=== PATIENT | female | born 1995 | race Hispanic/Latino ===

== ENCOUNTER 2018-08-05 14:53 | Emergency (ER) | payer OTHER ==
[2018-08-05 14:59] VITALS: RESP 18; TEMP 97; O2SAT 100; BMI 28.1
--- NOTE | 2018-08-05 15:32 | ED PDOC ---
Arrival/HPI - General Chief Complaint: Finger,Hand,&Wrist Time Seen by Provider: 08/05/18 15:08 Historian: Patient - History of Present Illness Narrative History of Present Illness (Text): 08/05/18 15:28 22 year old female, who works an an EMT, with no significant past medical history and no significant past surgical history, presents to the ED for evaluation of right 3rd finger injury prior to arrival. Patient states she was throwing bags into her car when her finger got caught into one of the bags, sustaining injury to the site. Patient additionally reports burn to the finger sustained 1 week ago. Patient informs appropriate movement of finger. Patient denies any other associated somatic complaints. Patient denies any fevers, chills, headache, dizziness, chest pain, shortness of breath, dyspnea on exertion, cough, abdominal pain, nausea, vomiting, diarrhea, back pain, neck pain, or any other complaints. Patient denies taking any pain medication at home. Time/Duration: Prior to Arrival Symptom Onset: Gradual Symptom Course: Unchanged Activities at Onset: Light Context: Home Past Medical History - Provider Review Nursing Documentation Reviewed: Yes - Reproductive Currently : No - Psychiatric Hx Substance Use: No - Anesthesia Hx Anesthesia: No Family/Social History - Physician Review Nursing Documentation Reviewed: Yes Family/Social History: No Known Family HX Smoking Status: Current Some Days Smoker Hx Alcohol Use: Yes Frequency of alcohol use: Socially Hx Substance Use: No Allergies/Home Meds Allergies/Adverse Reactions: Allergies No Known Allergies Allergy (Verified 08/05/18 15:03) Home Medications: Home Meds Medication Instructions Recorded Confirmed RX: No Known Home Med 08/05/18 08/05/18 Review of Systems - Physician Review All systems were reviewed & negative as marked: Yes - Review of Systems Constitutional: absent: Fevers Respiratory: absent: SOB, Cough Cardiovascular: absent: Chest Pain Gastrointestinal: absent: Abdominal Pain, Diarrhea, Nausea, Vomiting Genitourinary Female: absent: Dysuria, Urine Output Changes Musculoskeletal: absent: Back Pain, Neck Pain Skin: absent: Rash Neurological: absent: Headache, Dizziness Psychiatric: absent: Anxiety Physical Exam Vital Signs Reviewed: Yes Vital Signs Temp Pulse Resp BP Pulse Ox 08/05/18 14:59 97.0 F L 88 18 113/74 100 Temperature: Afebrile Blood Pressure: Normal Pulse: Regular Respiratory Rate: Normal Appearance: Positive for: Well-Appearing, Non-Toxic, Comfortable Pain Distress: None Mental Status: Positive for: Alert and Oriented X 3 - Systems Exam Head: Present: Atraumatic, Normocephalic Pupils: Present: PERRL Extroacular Muscles: Present: EOMI Conjunctiva: Present: Normal Mouth: Present: Moist Mucous Membranes Neck: Present: Normal Range of Motion. No: Meningeal Signs Respiratory/Chest: Present: Clear to Auscultation, Good Air Exchange. No: Respiratory Distress, Accessory Muscle Use Cardiovascular: Present: Regular Rate and Rhythm, Normal S1, S2. No: Murmurs Abdomen: No: Tenderness, Distention, Peritoneal Signs Upper Extremity: Present: Normal ROM, NORMAL PULSES, Tenderness (Tenderness to palpation at DIP), Neurovascularly Intact, Capillary Refill < 2s, Other (Well healed abrasion noted to dorsal surface of right digit between PIP and MCP joint. Mild bruising, no crepitus or erythema. No snuffbox tenderness.). No: Cyanosis, Edema, Erythema Lower Extremity: Present: Normal Inspection, Neurovascularly Intact. No: Edema Neurological: Present: GCS=15, Speech Normal Skin: Present: Warm, Dry, Normal Color. No: Rashes Psychiatric: Present: Alert, Oriented x 3, Normal Insight, Normal Concentration Medical Decision Making ED Course and Treatment: 08/05/18 15:34 Impression: 22 year old female presents to the ED for evaluation right 3rd digit injury. Mild bruising noted. Full rom. No subungual hematoma. Negative Knavels signs on exam. No erythema or crepitus. Plan: -- X-ray of right 3rd digit -- Reassess and disposition Prior Visits: Notes and results from previous visits were reviewed. Progress Notes: 08/05/18 17:00 XR unremarkable placed in baseball splint to R 3rd digit clear for d/c home with return indications and f/u. pt agreeable to plan. Pt notes she has tylenol at home. - RAD Interpretation Radiology Orders: 08/05/18 15:11 HAND RIGHT 3RD DIGIT (FINGER) [RAD] Stat - Scribe Statement The provider has reviewed the documentation as recorded by the Scribe Tatyana López. All medical record entries made by the Scribe were at my direction and personally dictated by me. I have reviewed the chart and agree that the record accurately reflects my personal performance of the history, physical exam, medical decision making, and the department course for this patient. I have also personally directed, reviewed, and agree with the discharge instructions and disposition. Disposition/Present on Arrival - Present on Arrival Any Indicators Present on Arrival: No History of DVT/PE: No History of Uncontrolled Diabetes: No Urinary Catheter: No History of Decub. Ulcer: No History Surgical Site Infection Following: None - Disposition Have Diagnosis and Disposition been Completed?: Yes Diagnosis: Injury of right middle finger Disposition: HOME/ ROUTINE Disposition Time: 16:51 Condition: GOOD Discharge Instructions (ExitCare): Common Finger Injuries (DC), Jammed Finger (DC) Additional Instructions: LUL MURO, thank you for letting us take care of you today. Your provider was Binh Houser and you were treated for finger injury. The emergency medical care you received today was directed at your acute symptoms. If you were prescribed any medication, please fill it and take as directed. It may take several days for your symptoms to resolve. Return to the Emergency Department if your symptoms worsen, do not improve, or if you have any other problems. Please contact your doctor or call one of the physicians/clinics you have been referred to that are listed on the Patient Visit Information form that is included in your discharge packet. Bring any paperwork you were given at discharge with you along with any medications you are taking to your follow up visit. Our treatment cannot replace ongoing medical care by a primary care provider outside of the emergency department. Thank you for allowing the [facility] team to be part of your care today. If you had an X-Ray or CT scan: A Radiologist will review the ED reading if any change in treatment is needed we will contact you. If you had a blood, urine, or wound culture: It will take several days for the results, if any change in treatment is needed we will contact you. If you had an STI test: It will take 48 hours for the results. Please call after 1 week if you have not heard back. Referrals: Aaron Willis DO [Staff Provider] - Follow up with primary [facility] [Outside] - Follow up with primary [facility] [Outside] - Follow up with primary [facility] [Outside] - Follow up with primary Cande Black MD [Medical Doctor] - Follow up with primary Forms: [facility] (H[place]ian)
--- NOTE | 2018-08-05 16:46 | RAD ---
Date of service: 08/05/2018 PROCEDURE: Right middle finger radiographs. HISTORY: trauma COMPARISON: None. TECHNIQUE: AP radiograph of the right hand, as well as spot oblique and lateral images of right middle finger were obtained. FINDINGS: RIGHT MIDDLE FINGER: Right middle finger normal, without fracture of focal lesion. Remainder of the right hand (as seen on the AP view) grossly unremarkable. JOINTS: Normal. SOFT TISSUES: Normal. OTHER FINDINGS: None. IMPRESSION: Normal right middle finger radiographs. Concordant results with the preliminary interpretation rendered by the emergency department physician procedure.
[2018-08-05 17:46] VITALS: BP 116/78; PULSE 71
== END 2018-08-05 17:05 | disposition home or self-care (01) ==
LOC: ED 14:53
DX: S69.91XA Unspecified injury of right wrist, hand and finger(s), initial encounter (principal); W23.0XXA Caught, crushed, jammed, or pinched between moving objects, initial encounter